=== PATIENT | male | born 2000 | race Caucasian/White ===

== ENCOUNTER 2019-04-27 03:26 | Emergency (ER) | payer OTHER ==
--- NOTE | 2019-04-27 04:05 | ED Physician Chart ---
ED Chief Complaint/HPI - Patient Information Date Seen:: 04/27/19 Time Seen:: 04:00 Chief Complaint:: left testicular pain History of Present Illness:: this is a 19 yo obese male who suddenly started having pain in the left testicular and the left lower quadrant of the abdomen. he denies having vomiting but has bouts of nausea. he denies all other symptoms except for pain and nausea. he denies painful urination and diarrhea. Allergies:: Allergies Allergy/AdvReac Type Severity Reaction Status Date / Time Penicillins [PCN] Allergy Verified 04/27/19 03:37 Vitals:: Vital Signs - 8 hr 04/27/19 03:29 Temp 97.9 F HR 82 RR 17 BP 115/68 O2 Sat % 97 Historian:: Patient Review:: Nurse's Note Reviewed, Old Chart Reviewed ED Review of Systems - Review of Systems General/Constitutional: No fever, No chills, No weight loss, No weakness, No diaphoresis, No edema, No loss of appetite Skin: No skin lesions, No rash, No bruising Head: No headache, No light-headedness Eyes: No loss of vision, No pain, No diplopia ENT: No earache, No nasal drainage, No sore throat, No tinnitus Neck: No neck pain, No swelling, No thyromegaly, No stiffness, No mass noted Cardio Vascular: No chest pain, No palpitations, No PND, No orthopnea, No edema Pulmonary: No SOB, No cough, No sputum, No wheezing GI: Nausea, Pain G/U: No dysuria, No frequency, No hematuria, Other (testicular paiin) Musculoskeletal: No bone or joint pain, No back pain, No muscle pain Endocrine: No polyuria, No polydipsia Psychiatric: No prior psych history, No depression, No anxiety, No suicidal ideation Hematopoietic: No bruising, No lymphadenopathy Allergic/Immuno: No urticaria, No angioedema Neurological: No syncope, No focal symptoms, No weakness, No paresthesia, No headache, No seizure, No dizziness, No confusion, No vertigo ED Past Medical History - Past Medical History Obtainable: Yes Past Medical History: Asthma/COPD Family History: None Social History: Non Smoker, No Alcohol, No Drug Use, Lives With Parents Surgical History: None Psychiatricy History: None Medication: Reviewed ED Physical Exam - Physical Examination General/Constitutional: Awake, Well-developed, well-nourished, Alert, No distress, GCS 15, Non-toxic appearing, Ambulatory Head: Atraumatic Eyes: Lids, conjuctiva normal, PERRL, EOMI Skin: Nl inspection, No rash, No skin lesions, No ecchymosis, Well hydrated, No lymphadenopathy ENMT: External ears, nose nl, Nasal exam nl, Lips, teeth, gums nl Neck: Nontender, Full ROM w/o pain, No JVD, No nuchal rigidity, No bruit, No mass, No stridor Respiratory: Nl effort/Exclusion, Clear to Auscultation, No Wheeze/Rhonchi/Rales Cardio Vascular: RRR, No murmur, gallop, rubs, NL S1 S2 GI: No tenderness/rebounding/guarding (left lower quadrant tenderness), No organomegaly, No hernia, Normal BS's, Nondistended, No mass/bruits, No McBurney tenderness : No CVA tenderness Extremities: No tenderness or effusion, Full ROM, normal strength in all extremities, No edema, Normal digits & nails Neuro/Psych: Alert/oriented, DTR's symmetric, Normal sensory exam, Normal motor strength, Judgement/insight normal, Mood normal, Normal gait, No focal deficits Misc: Normal back, No paraspinal tenderness ED Labs/Radiology/EKG Results - Lab Results Results: Abnormal Lab Results 04/27/19 04/27/19 04/27/19 03:30 04:10 04:10 WBC 10.3 RBC 5.21 Hgb 14.6 Hct 42.8 MCV 82.1 MCH 28.0 MCHC Differential 34.1 RDW 12.9 Plt Count 259 MPV 9.1 Neutrophils % 59.3 Lymphocytes % 34.0 Monocytes % 4.8 Eosinophils % 1.7 Basophils % 0.2 Sodium 139 Potassium 3.7 Chloride 105 Carbon Dioxide 23.4 Anion Gap 14.3 BUN 7 Creatinine 0.6 L Est GFR ( Amer) > 60.0 Est GFR (Non-Af Amer) > 60.0 BUN/Creatinine Ratio 11.7 Glucose 83 Calcium 9.1 Total Bilirubin 0.5 AST 17 ALT 23 Alkaline Phosphatase 82 Total Protein 8.0 Albumin 4.3 Globulin 3.7 Albumin/Globulin Ratio 1.2 Urine Source CLEAN C Urine Color YELLOW Urine Clarity CLEAR Urine pH 6.0 Ur Specific [place] >= 1.030 Urine Protein TRACE Urine Glucose (UA) NEGATIVE Urine Ketones NEGATIVE Urine Blood NEGATIVE Urine Nitrate NEGATIVE Urine Bilirubin NEGATIVE Urine Urobilinogen 0.2 Ur Leukocyte Esterase NEGATIVE Urine RBC 0-2 H Urine WBC 0-2 Ur Epithelial Cells NONE SEEN Urine Bacteria FEW Urine Mucus MODERATE - Radiology Results Results: ultrasound of the testicle and the abdomen = nad ED Assessment - Assessment General Assessment: left groin strain ED Septic Shock - . Is Septic Shock (SBP<90, OR Lactate>4 mmol\L) present?: No - <6hrs of presentation: Vital Signs: Vital Signs - 8 hr 04/27/19 03:29 Temp 97.9 F HR 82 RR 17 BP 115/68 O2 Sat % 97 ED Reassessment (Disposition) - Reassessment Reassessment:: this patient refused pain medications and refused a ct scan. the patient was told to see his pmd for a surgical consult mona. he was told to go to the er if his symptoms persist or gets worse. Reassessment Condition:: Improved - Diagnosis Diagnosis:: abdominal pain - Aftercare/Follow up Instructions Aftercare/Follow-Up Instructions:: Counseled pt regarding lab results/diagnosis & need follow up, Refer to Discharge Instructions Medication Prescribed:: motrin - Patient Disposition Discharge/Transfer:: Home Condition at Disposition:: Stable, Improved
[2019-04-27 04:17] LABS: URINE SOURCE CLEAN C
[2019-04-27 04:21] LABS: % BASOPHILS 0.2 % (0.0-2.0); % EOSINOPHILS 1.7 % (0.0-5.0); % MONOCYTES 4.8 % (2.0-10.0); % NEUTROPHILS 59.3 % (40.0-80.0); EOSINOPHILE ABSOLUTE 0.2 Th/cmm (0.1-0.4); HEMATOCRIT 42.8 % (41.0-60); HEMOGLOBIN 14.6 gm/dL (12-16); LYMPHOCYTE ABSOLUTE 3.5 Th/cmm (1.5-3.0); MEAN CELL VOLUME 82.1 fl (80-99); MEAN CORPUSCULAR HGB CONC 34.1 pg (28.0-36.0); MONOCYTE ABSOLUTE 0.5 Th/cmm (0.3-1.0); NEUTROPHILE ABSOLUTE 6.1 Th/cmm (1.8-8.0); PLATELET COUNT 259 Th/cmm (150-400); RED BLOOD COUNT 5.21 Mil/cmm (4.30-5.70); RED CELL DISTRIBUTION WIDTH 12.9 % (11.5-20.0); WHITE BLOOD COUNT 10.3 Th/cmm (4.8-10.8)
[2019-04-27 04:29] LABS: URINE BILIRUBIN NEGATIVE (NEGATIVE); URINE BLOOD NEGATIVE (NEGATIVE); URINE GLUCOSE (UA) NEGATIVE (NEGATIVE); URINE KETONE NEGATIVE (NEGATIVE); URINE LEUKOCYTE ESTERASE NEGATIVE (NEGATIVE); URINE MICROSCOPIC INDICATED? YES; URINE NITRATE NEGATIVE (NEGATIVE); URINE PROTEIN TRACE mg/dL (NEGATIVE); URINE UROBILINOGEN 0.2 E.U./dL (0.2 - 1.0)
[2019-04-27 04:30] LABS: URINE CLARITY CLEAR (CLEAR); URINE COLOR YELLOW
[2019-04-27 04:33] LABS: ALB/GLOB RATIO 1.2 (1.0-1.8); ALBUMIN 4.3 gm/dL (4.2-5.5); ALKALINE PHOSPHATASE 82 U/L (34-104); ANION GAP 14.3 (7.0-16.0); BILIRUBIN,TOTAL 0.5 mg/dL (0.3-1.0); BUN - UREA NITROGEN 7 mg/dL (7-25); CALCIUM SERUM 9.1 mg/dL (8.6-10.3); CARBON DIOXIDE 23.4 mEq/L (21.0-31.0); CHLORIDE 105 mEq/L (98-107); CREATININE - SERUM 0.6 mg/dL (0.7-1.3); GFR AFRICAN-AMERICAN > 60.0 ml/min (>90); GFR NON AFRICAN-AMERICAN > 60.0 ml/min; GLUCOSE 83 mg/dL (70-105); POTASSIUM SERUM 3.7 mEq/L (3.5-5.1); SGOT 17 U/L (13-39); SGPT/ALT 23 U/L (7-52); SODIUM SERUM 139 mEq/L (136-145)
[2019-04-27 04:35] LABS: URINE BACTERIA FEW /hpf (NONE SEEN); URINE EPITHELIAL CELLS NONE SEEN /lpf (FEW); URINE RBC 0-2 /hpf (0-5); URINE WBC 0-2 /hpf (0-5)
--- NOTE | 2019-04-27 09:47 | Diagnostic Imaging Report ---
Exam: Scrotal ultrasound HISTORY: Left testicular pain FINDINGS: Real-time ultrasound examination of the scrotum was performed multiple planes. The study demonstrates somewhat altered echogenicity testis bilaterally with normal vascular flow Right testicle contains 4 mm cyst. Right testicle measures 3.2 x 3.2 x 3.2 cm diameter. Left testicle measures 3.3 x 2.0 x 2.8 submitted diameter. Left epididymis is enlarged containing 7 mm cyst. There is no evidence of hydroceles or varicoceles. IMPRESSION: 4 mm right testicular cyst 7 mm left epididymal cyst. The echogenicity testis somewhat altered, this might be due to a technical factor. Clinical correlation follow-up exam is recommended if clinically indicated.
--- NOTE | 2019-04-27 09:48 | Diagnostic Imaging Report ---
Exam: Left lower quadrant ultrasound HISTORY: Pain FINDINGS: Limited examination left lower quadrant of the abdomen performed multiple planes demonstrates no specific findings. The visualized left kidney is intact no evidence of obstructive uropathy or nephrolithiasis. The urinary bladder is intact. IMPRESSION essentially unremarkable limited examination of left lower quadrant.
== END 2019-04-27 06:30 | disposition home or self-care (01) ==
LOC: ER 03:26
DX: S39.011A Strain of muscle, fascia and tendon of abdomen, initial encounter (principal); N50.812 Left testicular pain; J45.909 Unspecified asthma, uncomplicated; Z88.0 Allergy status to penicillin; X58.XXXA Exposure to other specified factors, initial encounter; Y93.89 Activity, other specified; Y92.89 Other specified places as the place of occurrence of the external cause; Y99.8 Other external cause status
CPT/HCPCS: 36415-UA; 76705-TC; 76870-TC; 80053-TC; 81001-TC; 85025-TC; J1885; J2405